=== PATIENT | female | born 1995 | race Caucasian/White ===

== ENCOUNTER 2020-05-17 07:03 | Emergency (ER) | payer BC, OTHER ==
[2020-05-17 07:39] VITALS: BP 119/82; PULSE 72; TEMP 98.5
== END 2020-05-17 08:33 | disposition home or self-care (01) ==
LOC: JER 07:03
DX: Z03.818 Encounter for observation for suspected exposure to other biological agents ruled out (principal)
CPT/HCPCS: 99283-25; C9803; U0003